=== PATIENT | female | born 1930 | race Caucasian/White ===

== ENCOUNTER 2017-07-17 09:51 | Inpatient (IN) ==
[2017-07-17] MEDS ORDERED: IOPAMIDOL 100 ML BOTTLE IV ONE (09:52)
--- NOTE | 2017-07-17 10:16 | Emergency Department Note ---
Weakness HPI - General Chief complaint: Weakness Stated complaint: Fall, Weakness Time Seen by Provider: 07/17/17 10:12 Source: patient, family Mode of arrival: wheelchair - History of Present Illness HPI Narrative: 87 year old female is complaining of increasing falls, the latest being this morning at assisted living. She fell in the bathroom, had a diarrheal stool, and was put back in her chair after being cleaned up. She has had diarrhea for 2 days. No recent antibiotics. Normally she can get herself out of the chair with the help of her walker but today she was unable. Her daughter was called to bring her to ER. No hx of dementia but has taken on some unusual movements of her body, "squirming" all the time according to her daughter. No new medications. MD Complaint: generalized weakness Onset (ago): week(s) (1) Duration: intermittent Location: generalized (Unable to push herself up from her chair. Had diarrhea this morning .) Migration: none Severity: mild Quality: other (No pain) Improves with: other (NO pain) Worsens with: other (trying to get up from her chair and walk.) Associated symptoms: Reports: other (diarrhea) - Related Data Home Medications Medication Instructions Recorded Confirmed calcium carbonate 600 mg calcium 600 mg PO QDAY tab 08/29/14 07/17/17 (1,500 mg) tablet cholecalciferol (vitamin D3) 1,000 1,000 unit PO QDAY cap 08/29/14 07/17/17 unit capsule ibuprofen 100 mg tablet 200 mg PO Q6H tab 08/29/14 07/17/17 multivitamin tablet 1 tab PO QDAY tab 08/29/14 07/17/17 omeprazole 20 mg capsule,delayed 20 mg PO QDAY cap 08/29/14 07/17/17 release psyllium seed (sugar) oral powder 1 tbsp PO QDAY each 08/29/14 07/17/17 aspirin 81 mg tablet,delayed 81 mg PO QDAY tab 10/21/14 07/17/17 release gabapentin 100 mg capsule 100 mg PO BID cap 11/03/15 07/17/17 ferrous sulfate 325 mg (65 mg 325 mg PO QDAY 11/02/16 07/17/17 iron) tablet Previous Rx's Medication Instructions Recorded DISABLED [place]ING [place]MIT See Dose Instructions TOPICAL .QD 04/12/16 #1 amlodipine 2.5 mg tablet 2.5 mg PO QDAY #90 tab 05/26/17 levothyroxine 100 mcg tablet 100 mcg PO QDAY #90 tab 05/26/17 losartan 100 mg tablet 100 mg PO QDAY #90 tab 05/26/17 Lift Chair #1 each 06/22/17 Allergies Allergy/AdvReac Type Severity Reaction Status Date / Time codeine Allergy Unknown Unknown Verified 07/17/17 10:34 hydrocodone Allergy Unknown Unknown Verified 07/17/17 10:34 hydrochlorothiazide AdvReac Unknown Rash Verified 07/17/17 10:34 Review of Systems Constitutional: Denies: fever, chills Cardiovascular: Denies: chest pain Respiratory: Denies: shortness of breath, cough Gastrointestinal: Reports: diarrhea. Denies: vomiting Genitourinary: Denies: dysuria, urgency Musculoskeletal: Reports: other (Right low back pain to palpation.) Integumentary: Denies: rash Neurological: Denies: headache Psychiatric: Reports: anxiety (Daughter says she gets anxious when she is in the hospital. 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 Absent: tenderness Chest: Present: normal inspection, symmetric chest wall rise Respiratory: Present: normal lung sounds bilaterally Cardiovascular: Present: regular rate, normal rhythm Abdominal: Present: soft. Absent: distention, tenderness Extremities: Present: normal inspection. Absent: pedal edema, joint swelling Back: Present: other (Tender right of LS spine into to right hip) Neurological: Present: alert, oriented X3 Psychiatric: Present: normal affect, anxious (per the daughter. she is figety.) Skin: Present: warm, dry, intact Course Course Narrative: 1230 Dr. Ham, hospitalist was consulted regarding the elevated WBC, low sodium and chloride as well as the weakness. Vital Signs Temperature 99.3 F H 07/17/17 10:30 Pulse Rate 98 H 07/17/17 10:30 Respiratory Rate 20 07/17/17 10:30 Blood Pressure 115/66 07/17/17 10:30 Pulse Oximetry (%) 96 07/17/17 10:30 Temperature 99.3 F H 07/17/17 10:30 Pulse Rate 100 H 07/17/17 12:40 Respiratory Rate 19 07/17/17 12:40 Blood Pressure 147/78 07/17/17 12:16 Pulse Oximetry (%) 99 07/17/17 12:40 Weakness - Lab Data Result diagrams: 07/17/17 10:28 07/17/17 10:28 Lab Results 07/17/17 07/17/17 07/17/17 Range/Units 10:28 10:28 11:44 WBC 12.6 H (4.5-11.0) K/mcL RBC 4.00 (4.00-5.20) M/mcL Hgb 11.7 L (12.0-15.0) g/dL Hct 34.7 L (36.0-48.0) % MCV 86.7 (80.0-100.0) fL MCH 29.3 (26.0-34.0) pg MCHC 33.8 (31.0-36.0) g/dL RDW 14.3 (11.5-14.5) % Plt Count 316 (140-440) K/mcL MPV 6.9 L (7.4-10.4) fL Gran % 90.5 H (38.0-78.0) % Lymph % (Auto) 1.5 L (15.5-49.0) % [place] % (Auto) 6.8 (1.0-12.0) % Eos % (Auto) 1.2 (0.0-7.0) % Baso % (Auto) 0 (0.0-2.0) % Gran # 11.4 H (1.8-8.0) K/mcL Lymph # (Auto) 0.2 L (1.5-4.8) K/mcL [place] # (Auto) 0.9 (0.1-0.9) K/mcL Eos # (Auto) 0.2 (0.0-0.7) K/mcL Baso # (Auto) 0 (0.0-0.3) K/mcL Sodium 122 L (133-145) mmol/L Potassium 4.2 (3.3-5.1) mmol/L Chloride 89 L (96-108) mmol/L Carbon Dioxide 20 L (22-30) mmol/L Anion Gap 13.0 (8-16) BUN 17 (8-23) mg/dl Creatinine 0.7 (0.6-1.1) mg/dl GFR Calculation 77 Glucose 136 H (70-105) mg/dL Calcium 8.7 (8.6-10.4) mg/dl Total Bilirubin 0.6 (0.0-1.0) mg/dL AST 33 (0-37) U/l ALT 28 (0-40) U/l Alkaline Phosphatase 76 (39-117) U/L Total Protein 7.8 (5.9-8.4) gm/dL Albumin 3.5 (3.2-5.2) gm/dL Globulin 4.3 H (2.2-3.7) gm/dL Albumin/Globulin Ratio 0.8 L (1.0-2.3) Urine Color Yellow Urine Appearance Hazy Urine pH 5.0 (5.0-9.0) Ur Specific [place] 1.018 (1.000-1.035) Urine Protein 30 A (NEG) mg/dL Urine Glucose (UA) Negative (NEG) mg/dL Urine Ketones Neg (NEG) mg/dL Urine Occult Blood Neg (<0.03) mg/dL Urine Nitrate Neg (NEG) Urine Bilirubin Neg (NEG) mg/dL Urine Urobilinogen Neg (NEG) mg/dL Ur Leukocyte Esterase Neg (NEG) /uL Urine RBC 1 (0-1) /hpf Urine WBC 1 (0-4) /hpf Ur Squamous Epith Cells < 1 (0-4) /hpf Urine Bacteria 0 (0) /hpf Urine Mucus Few (0) /hpf Ur Culture Indicated? No Disposition Pt seen by [employer]/PA only: Yes Clinical Impression: Hyponatremia, Weakness Clinical Impression: (Ruled Out): Diarrhea Disposition: Xfer As Inpt ([facility]) Condition: Fair Referrals: Molina Eden PA-C [Primary Care Provider] -
[2017-07-17 10:58] LABS: Basophils # (Auto) 0 K/mcL (0.0-0.3); Basophils % (Auto) 0 % (0.0-2.0); Eosinophils # (Auto) 0.2 K/mcL (0.0-0.7); Eosinophils % (Auto) 1.2 % (0.0-7.0); Granulocytes % (Auto) 90.5 % (38.0-78.0); Lymphocytes # (Auto) 0.2 K/mcL (1.5-4.8); Lymphocytes % (Auto) 1.5 % (15.5-49.0); Mean Cell Volume 86.7 fL (80.0-100.0); Mean Corpuscular HGB Conc 33.8 g/dL (31.0-36.0); Mean Corpuscular Hemoglobin 29.3 pg (26.0-34.0); Monocytes # (Auto) 0.9 K/mcL (0.1-0.9); Monocytes % (Auto) 6.8 % (1.0-12.0); Platelet Count 316 K/mcL (140-440); Red Cell Distribution Width 14.3 % (11.5-14.5)
[2017-07-17 11:16] LABS: ALT/SGPT 28 U/l (0-40); Albumin 3.5 gm/dL (3.2-5.2); Albumin/Globulin Ratio 0.8 (1.0-2.3); Alkaline Phosphatase 76 U/L (39-117); Blood Urea Nitrogen 17 mg/dl (8-23)
[2017-07-17 12:15] LABS: Appearance,Urine HAZY; Bacteria,Urine 0 /hpf (0); Bilirubin,Urine NEG (NEG); Color,Urine YELLOW; Glucose,Urine (UA) NEGATIVE (NEG); Leukocyte Esterase,Urine NEG /uL (NEG); Mucus,Urine FEW /hpf (0); Protein,Urine 30 mg/dL (NEG); Specific Gravity,Urine 1.018 (1.000-1.035); Urine Blood NEG mg/dL (<0.03); Urine RBC 1 /hpf (0-1); Urine Squamous Epithelial Cell < 1 /hpf (0-4); Urine WBC 1 /hpf (0-4); Urobilinogen,Urine NEG (NEG)
[2017-07-17] MEDS ORDERED: 0.9 % SODIUM CHLORIDE 1,000 ML IV SCH (12:15)
--- NOTE | 2017-07-17 12:46 | XRay Report ---
CLINICAL INFORMATION: Trauma COMPARISON: None. FINDINGS: No fracture identified. Both SI and hip joints show only minimal degenerative change. Moderate L3-4 L4-5 and L5-S1 degenerative disc disease noted. Mild diffuse osteoporosis is noted. No soft tissue abnormalities IMPRESSION: No evidence of fracture. Lumbar degenerative change Interpreted and Authenticated by: Kwabena Oquendo 07/17/17
[2017-07-17 13:43] LABS: Osmolality,Urine 499 mOsm/kg (80-1000)
[2017-07-17] MEDS ORDERED: ONDANSETRON 4 MG/2 ML VIAL IV PRN (15:06)
[2017-07-17] MEDS ORDERED: HYDROmorphone 2 MG/ML VIAL IV PRN (15:06)
[2017-07-17] MEDS ORDERED: ACETAMINOPHEN 325 MG TABLET PO PRN (15:06)
[2017-07-17] MEDS: 0.9 % SODIUM CHLORIDE 1,000 ML IV SCH (15:30)
[2017-07-17] MEDS: 0.9 % SODIUM CHLORIDE 10 ML SYRINGE IV SCH ×2 (16:21→22:15)
--- NOTE | 2017-07-17 17:47 | Internal Med History&Physical ---
Medical - H&P: HPI Patient information: Note initiated : 07/17/17 at 5:43 pm Service Date, if different from initiated Date: [] Patient: Keren Syed 87 y/o F admitted on 07/17/17 for Fall, Weakness. Chief Complaint: fall, diarrhea History of present illness: The patient 87-year-old female with a history of Graves' disease, status post ablation on replacement, mild hyponatremia, diverticulosis, bladder cancer who presents to the ED after falls at home. History is obtained from the patient, her daughter, as well as old records are reviewed. Patient developed diarrhea this morning. She had a fall in the bathroom was unable to get up. She had stool on herself. She was helped up and cleaned. Subsequently she was too weak to get up out of her chair, couldn't get to the bathroom again. Because of this she was transported to the emergency department. In the ED, she is ruled out for C. difficile with a negative stool specimen. While she was in the ED, she did develop left lower quadrant pain. She has a history of diverticulosis and occasionally gets left lower quadrant pain. Up until this morning, she had been constipated. She generally takes Metamucil every evening, not used any stronger laxatives prior to her diarrhea starting. She gets all of her meals at [facility], where she lives. Has not recently eaten out, no leftovers, no buffets. No ill contacts. No recent travel. She denies any fevers or chills. She's had no associated nausea or vomiting. There is no blood in her stool. As noted she occasionally has left lower quadrant abdominal pain. No headache, cough, sputum production, sore throat, chest pain/tightness, dyspnea, dysuria, focal neurologic symptoms. She feels generally weak. Further evaluation revealed serum sodium of 122 which is below her baseline. She is also quite weak. She's had 4-5 falls over the last 6 weeks. She lives at [facility], on the independent side. She is being admitted to the hospital secondary to her hyponatremia, as well as further evaluation of her left lower quadrant pain. 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 Walks with a walker. Non-smoker, does not drink alcohol. Medical - H&P: Meds Home Medications Medication Instructions Recorded Confirmed Type calcium carbonate 600 mg calcium 600 mg PO QDAY tab 08/29/14 07/17/17 History (1,500 mg) tablet cholecalciferol (vitamin D3) 1,000 1,000 unit PO QDAY cap 08/29/14 07/17/17 History unit capsule ibuprofen 100 mg tablet 200 mg PO Q6H tab 08/29/14 07/17/17 History multivitamin tablet 1 tab PO QDAY tab 08/29/14 07/17/17 History omeprazole 20 mg capsule,delayed 20 mg PO QDAY cap 08/29/14 07/17/17 History release psyllium seed (sugar) oral powder 1 tbsp PO QDAY each 08/29/14 07/17/17 History aspirin 81 mg tablet,delayed 81 mg PO QDAY tab 10/21/14 07/17/17 History release DISABLED [place] See Dose Instructions TOPICAL .QD 07/01/15 06/22/17 Rx #1 gabapentin 100 mg capsule 100 mg PO BID cap 11/03/15 07/17/17 History ferrous sulfate 325 mg (65 mg 325 mg PO QDAY 11/02/16 07/17/17 History iron) tablet amlodipine 2.5 mg tablet 2.5 mg PO QDAY #90 tab 05/26/17 07/17/17 Rx levothyroxine 100 mcg tablet 100 mcg PO QDAY #90 tab 05/26/17 07/17/17 Rx losartan 100 mg tablet 100 mg PO QDAY #90 tab 05/26/17 07/17/17 Rx Lift Chair #1 each 06/22/17 06/22/17 Rx Allergies Allergy/AdvReac Type Severity Reaction Status Date / Time codeine Allergy Unknown Unknown Verified 07/17/17 10:34 hydrocodone Allergy Unknown Unknown Verified 07/17/17 10:34 hydrochlorothiazide AdvReac Mild Rash Verified 07/17/17 15:08 Medical - H&P: Exam - Constitutional Vitals: Temp Pulse Resp BP Pulse Ox 99.7 F H 87 20 150/94 88 L 07/17/17 15:06 07/17/17 15:06 07/17/17 15:06 07/17/17 15:06 07/17/17 15:06 Exam: GENERAL: Alert, oriented, in no acute distress. Cooperative, appears stated age. HEENT: Atraumatic. PERRL, conjunctiva clear, no scleral icterus. Hearing grossly intact. Oropharynx with moist mucous membranes, no lip or gum lesions, no pharyngeal erythema or exudate. Tongue midline, palate rises symmetrically. NECK: Supple without meningismus, no thyromegaly RESPIRATORY: Breath sounds clear bilaterally without wheezes or rhonchi. Respiratory effort is unlabored. CARDIOVASCULAR: Regular rate and rhythm, no murmur gallop or rub. No peripheral edema. Carotid pulses 2+ without bruit. GI: Abdomen soft, mild-moderate LLQ tenderness to palpation with mild rebound tenderness. Bowel sounds are present. No hepatosplenomegaly. LYMPHATIC: No cervical or supraclavicular lymphadenopathy MUSCULOSKELETAL: No joint erythema or swelling, normal range of motion in extremities. Muscle mass normal for age. Strength 5/5 in the upper and lower extremities. SKIN: Intact, warm, dry. Skin turgor decreased. NEUROLOGIC: Cranial nerves II through XII grossly intact. Sensation intact to light touch bilaterally. PSYCHIATRIC: Alert, oriented x3, normal affect, normal insight. Medical - H&P: Reslt - Labs CBC & Chem 7: 07/17/17 10:28 07/17/17 10:28 Labs: Short CBC 07/17/17 Range/Units 10:28 WBC 12.6 H (4.5-11.0) K/mcL Hgb 11.7 L (12.0-15.0) g/dL Hct 34.7 L (36.0-48.0) % Plt Count 316 (140-440) K/mcL BMP 07/17/17 07/17/17 10:19 10:28 Sodium TNP 122 L Potassium TNP 4.2 Chloride TNP 89 L Carbon Dioxide TNP 20 L BUN TNP 17 Creatinine TNP 0.7 Glucose TNP 136 H Calcium TNP 8.7 Liver Function 07/17/17 Range/Units 10:28 Total Bilirubin 0.6 (0.0-1.0) mg/dL AST 33 (0-37) U/l ALT 28 (0-40) U/l Alkaline Phosphatase 76 (39-117) U/L Albumin 3.5 (3.2-5.2) gm/dL Urine 07/17/17 Range/Units 11:44 Urine Color Yellow Urine Appearance Hazy Urine pH 5.0 (5.0-9.0) Ur Specific [place] 1.018 (1.000-1.035) Urine Protein 30 A (NEG) mg/dL Urine Glucose (UA) Negative (NEG) mg/dL Microbiology 07/17/17 15:19 MRSA (PCR) - Final Nose MRSA PCR positive 07/17/17 10:29 C.difficile Toxin B Gene (PCR) - Final Stool NEG - Impressions Hip and Pelvis XR IMPRESSION: No evidence of fracture. Lumbar degenerative change - Imaging and Cardiology CT scan - abdomen Status: image reviewed by me Additional comments: Study and images reviewed and discussed with Dr. Oquendo. Uncomplicated sigmoid diverticulitis. No perforation, no abscess. Medical - H&P: A/P (1) Hyponatremia Current visit: Yes Status: Acute (2) Diverticulitis large intestine w/o perforation or abscess w/o bleeding Current visit: Yes Status: Acute (3) Hypothyroidism (acquired) Current visit: No Status: Chronic - Narrative A/P Narrative: 87-year-old female presents after 2 falls, weakness and diarrhea. Found to have acute on chronic hyponatremia as well as diverticulitis on examination imaging. Hyponatremia. Baseline serum sodium is 129 to 1:30 per the patient. She does have a chronic history of hyponatremia. Unclear on how acutely she is dropped to 122, but could be contributing to her presentation, her falls and her generalized weakness. Given the level of hyponatremia she will need correction. She has been started on normal saline infusion. Plan: Inpatient admission, serial sodiums, slowly correct sodium. Urine sodium and Osm sent to help sort out cause of hyponatremia. Clinically she is hypovolemic at presentation. Diverticulitis. Uncomplicated, without perforation or abscess. This likely explains her recent constipation followed by her diarrhea today. She has extensive sigmoid diverticulosis. Plan: Ciprofloxacin and metronidazole, pain control, full liquid diet. Generalized weakness with recent falls. May be related to age-related debility , certainly in last few days likely related to diverticulitis and possibly hyponatremia. Plan: Physical therapy evaluation and treatment. Graves' disease with history of thyroid ablation and acquired hypothyroidism. On levothyroxine replacement. If under replaced, could be contributing to her serum sodium. Plan: Check TSH. Prophylaxis: Low molecular weight heparin. CODE STATUS: DO NOT RESUSCITATE. Medical - H&P: Qual - Stroke Symptom Onset Unknown: No - VTE Deep Vein Thrombosis/Pulmonary Embolism Present on Admission: No
--- NOTE | 2017-07-17 19:28 | Cat Scan Report ---
CLINICAL INFORMATION: Left lower quadrant pain COMPARISON: 05/14/[address] TECHNIQUE: Following enteric contrast, 80 cc of Isovue-300 were injected intravenously, and 60 seconds later, 0.625 mm helical slices were obtained from the mid heart through the subtrochanteric regions. Following reconstruction, 2.5 mm sagittal, coronal and axial reformatted images were processed and reviewed at bone, lung and soft tissue windows. Five minutes later, 0.625 mm helical slices were obtained from the mid heart through the kidneys and viewed at soft tissue windows.The exam was performed using radiation dose optimization techniques including, but not limited to, automated exposure control, adjustment of the mA and/or kV according to patient size and use of iterative reconstruction technique. FINDINGS: Lung bases show evidence for chronic bronchitis and interstitial disease which is new from previous study may indicate fibrosis. There are no effusions. Visualized heart is mildly enlarged Images through the abdomen show mild fatty change within the liver, but no focal lesions. The gallbladder is surgically absent. The common bile duct is slightly dilated 7 mm compatible with post cholecystectomy state. The pancreas, both kidneys, adrenal glands, spleen and aorta are normal in size, configuration and attenuation without focal lesion. Images through the pelvis show diminutive postmenopausal uterus. The ovaries are atrophic and not identified. Urinary bladder is unremarkable. Extensive sigmoid diverticulosis is noted featuring circular muscle hypertrophy and multiple diverticuli. There is eccentric wall thickening of the inferior mid sigmoid colon with a small amount of fluid between the sigmoid colon and the bladder dome. Findings are compatible with diverticulitis is a new finding. There is no abscess, fistula or other complication. The remainder of the colon, appendix, small bowel and stomach are normal. Bone windows show only degenerative change in lumbar spine IMPRESSION: 1. Simple diverticulitis involving the proximal 8 cm of sigmoid colon. No abscess or other complication. 2. Mild dilatation of the common bile duct compatible post cholecystectomy state - no change 3. Chronic bronchitis changes and interstitial disease in the periphery of both lower lobe which is new from a remote 2012 study. The patient could have interstitial fibrosis. 4. 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
[2017-07-17] MEDS: metroNIDAZOLE 500 MG/100 ML BAG IV SCH (20:10)
[2017-07-17] MEDS: CIPROFLOXACIN 400 MG/200 ML BAG IV SCH (20:11)
[2017-07-17] MEDS ORDERED: HYDROmorphone 2 MG TABLET PO PRN (20:36)
[2017-07-17] MEDS: GABAPENTIN 100 MG CAPSULE PO SCH (21:40)
[2017-07-18 04:48] LABS: Mean Corpuscular HGB Conc 33.9 g/dL (31.0-36.0); Mean Corpuscular Hemoglobin 29.5 pg (26.0-34.0); Platelet Count 289 K/mcL (140-440); RBC 3.76 M/mcL (4.00-5.20); Red Cell Distribution Width 14.1 % (11.5-14.5)
[2017-07-18] MEDS: 0.9 % SODIUM CHLORIDE 1,000 ML IV SCH ×2 (04:54→12:43)
[2017-07-18] MEDS: metroNIDAZOLE 500 MG/100 ML BAG IV SCH ×3 (05:23→22:55)
[2017-07-18 05:25] LABS: Blood Urea Nitrogen 12 mg/dl (8-23)
[2017-07-18] MEDS: 0.9 % SODIUM CHLORIDE 10 ML SYRINGE IV SCH ×3 (05:55→21:23)
[2017-07-18 05:58] LABS: Lymphocytes % 1 % (15-49); Monocytes % (Manual) 3 % (1-12); Platelet Estimate NORMAL (NORMAL); RBC Morphology NORMAL (NORMAL); Segmented Neutrophils % 96 % (38-78)
[2017-07-18] MEDS ORDERED: LEVOTHYROXINE 100 MCG TABLET PO SCH (07:30)
[2017-07-18] MEDS ORDERED: PANTOPRAZOLE 40 MG TABLET PO SCH (07:30)
--- NOTE | 2017-07-18 07:59 | Internal Med Progress Note ---
Medical - PN: Subj Patient information: Note initiated : 07/18/17 at 7:57 am Service Date, if different from initiated Date: [] Patient: Keren Syed 87 y/o F admitted on 07/17/17 for Fall, Weakness. Chief Complaint: f/u diverticulitis Interval history: 07/17 The patient 87-year-old female with a history of Graves' disease, status post ablation on replacement, mild hyponatremia, diverticulosis, bladder cancer who presents to the ED after falls at home. History is obtained from the patient, her daughter, as well as old records are reviewed. Patient developed diarrhea this morning. She had a fall in the bathroom was unable to get up. She had stool on herself. She was helped up and cleaned. Subsequently she was too weak to get up out of her chair, couldn't get to the bathroom again. Because of this she was transported to the emergency department. In the ED, she is ruled out for C. difficile with a negative stool specimen. While she was in the ED, she did develop left lower quadrant pain. She has a history of diverticulosis and occasionally gets left lower quadrant pain. Up until this morning, she had been constipated. She generally takes Metamucil every evening, not used any stronger laxatives prior to her diarrhea starting. She gets all of her meals at [place], where she lives. Has not recently eaten out, no leftovers, no buffets. No ill contacts. No recent travel. She denies any fevers or chills. She's had no associated nausea or vomiting. There is no blood in her stool. As noted she occasionally has left lower quadrant abdominal pain. No headache, cough, sputum production, sore throat, chest pain/tightness, dyspnea, dysuria, focal neurologic symptoms. She feels generally weak. Further evaluation revealed serum sodium of 122 which is below her baseline. She is also quite weak. She's had 4-5 falls over the last 6 weeks. She lives at [place], on the independent side. She is being admitted to the hospital secondary to her hyponatremia, as well as further evaluation of her left lower quadrant pain. 07/[address] yesterday. On antibiotics. Still with abdominal pain, did have nausea after hydromorphone yesterday. Her allergy to codeine is fairly severe nausea (may be codeine intolerance due to poor metabolism). She has tried morphine before. Also requesting her gabapentin, which she uses for trigeminal neuralgia. Sodium up to 126 today, slowly correcting with saline infusion. - Constitutional Vitals: Vital Signs Temp Pulse Resp BP Pulse Ox 98.8 F 64 16 115/54 99 07/18/17 04:00 07/18/17 06:04 07/18/17 04:00 07/18/17 06:04 07/18/17 06:04 Period Temp Pulse Resp BP Sys/Purcell Pulse Ox Last 24 Hr 98.8 F-99.7 F 56-100 15-30 95-154/45-94 88-100 Intake and Output 07/17/17 07/18/17 07/18/17 21:59 05:59 13:59 Intake Total 300 / 300 1000 / 1000 Output Total 626 / 626 101 / 101 Balance -326 / -326 1000 / 1000 -101 / -101 Weight 134 lb 12.8 oz Intake & Output: Intake & Output 07/17/17 07/18/17 07/18/17 21:59 05:59 13:59 Intake Total 300 / 300 1000 / 1000 Output Total 626 / 626 101 / 101 Balance -326 / -326 1000 / 1000 -101 / -101 Weight 134 lb 12.8 oz Intake: IV 300 / 300 1000 / 1000 Sodium Chloride 0.9% 1,000 ml @ 1000 / 1000 75 mls/hr IV .[id number] EB Rx#: [id number] Oral 0 / 0 Output: Void Amount 626 / 626 100 / 100 # of times incontinent of urine 1 / Other: Stool Size Moderate Stool Color Brown Stool Consistency Formed # Voids 1 1 # Bowel Movements 1 Exam: General: In bed, comfortable Cardiovascular: Regular, no edema Chest: Clear, respirations unlabored Abdomen: Soft, mild to moderate left lower quadrant tenderness with mild rebound. No guarding. Diminished bowel sounds. Neuro: Alert, oriented 3. Medical - PN: Obj Da - Labs CBC & Chem 7: 07/18/17 03:44 07/18/17 03:44 Labs: Abnormal Lab Results 07/18/17 07/18/17 07/17/17 03:44 03:44 19:20 WBC 14.2 H RBC 3.76 L Hgb 11.1 L Hct 32.7 L MPV 7.1 L Gran % Lymph % (Auto) Gran # Lymph # (Auto) Seg Neutrophils % 96 H Lymphocytes % 1 L Sodium 126 L 125 L Chloride 94 L Carbon Dioxide 21 L Creatinine 0.5 L Glucose 149 H Calcium 8.1 L Globulin Albumin/Globulin Ratio Urine Protein 07/17/17 07/17/17 07/17/17 11:44 10:28 10:28 WBC 12.6 H RBC Hgb 11.7 L Hct 34.7 L MPV 6.9 L Gran % 90.5 H Lymph % (Auto) 1.5 L Gran # 11.4 H Lymph # (Auto) 0.2 L Seg Neutrophils % Lymphocytes % Sodium 122 L Chloride 89 L Carbon Dioxide 20 L Creatinine Glucose 136 H Calcium Globulin 4.3 H Albumin/Globulin Ratio 0.8 L Urine Protein 30 A Meds: Medications Acetaminophen (Tylenol) 650 mg PO Q6HP PRN PRN Reason: PAIN/FEVER > 101 Amlodipine Besylate (Norvasc) 2.5 mg PO DAILY [facility] Aspirin (Aspirin) 81 mg PO DAILY [facility] Enoxaparin Sodium (Lovenox) 40 mg SQ DAILY [facility] Gabapentin (Neurontin) 100 mg PO BID [facility] Last Admin: 07/17/17 21:40 Dose: Not Given Hydromorphone HCl (Dilaudid) 0.5 mg IV Q2HP PRN PRN Reason: PAIN LEVEL > 6 Last Admin: 07/17/17 20:40 Dose: 0.5 mg Hydromorphone HCl (Dilaudid) 2 mg PO Q4HP PRN PRN Reason: PAIN LEVEL 3-6 Sodium Chloride (Sodium Chloride 0.9%) 1,000 mls @ 75 mls/hr IV .[id number] [facility] Last Admin: 07/18/17 04:54 Dose: 75 mls/hr Ciprofloxacin (Cipro) 400 mg in 200 mls @ 200 mls/hr IV Q12H [facility] Last Infusion: 07/17/17 21:30 Dose: Infused Metronidazole (Flagyl) 500 mg in 100 mls @ 100 mls/hr IV Q8H [facility] Last Admin: 07/18/17 05:23 Dose: 100 mls/hr Iron Carb/Multivit/Dupage/Folic Acid (Multivitamin W/Minerals) 1 tab PO DAILY [facility] Levothyroxine Sodium (Synthroid) 100 mcg PO QAMAC [facility] Last Admin: 07/18/17 07:40 Dose: 100 mcg Losartan Potassium (Cozaar) 100 mg PO DAILY [facility] Ondansetron HCl (Zofran) 4 mg IV Q4HP PRN PRN Reason: Nausea And Vomiting Last Admin: 07/17/17 20:40 Dose: 4 mg Pantoprazole Sodium (Protonix) 40 mg PO QAMAC [facility] Last Admin: 07/18/17 07:40 Dose: 40 mg Sodium Chloride (Saline Flush) 10 ml IV Q8 [facility] Last Admin: 07/18/17 05:55 Dose: 10 ml - Imaging and cardiology CT scan - abdomen Additional comments: IMPRESSION: 1. Simple diverticulitis involving the proximal 8 cm of sigmoid colon. No abscess or other complication. 2. Mild dilatation of the common bile duct compatible post cholecystectomy state - no change 3. Chronic bronchitis changes and interstitial disease in the periphery of both lower lobe which is new from a remote 2012 study. The patient could have interstitial fibrosis. 4. 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 Found to have acute on chronic hyponatremia as well as diverticulitis on examination and imaging. Diverticulitis. Uncomplicated, without perforation or abscess. WBC up a bit to 14K fron 12K, though the latter was drawn early in the presentation and today 's value probably reflects response to initial treatment. Diverticulitis likely explains her constipation followed by her diarrhea at presentation. She has extensive sigmoid diverticulosis. Plan: Continue ciprofloxacin and metronidazole, full liquid diet; change to morphine for pain control. Hyponatremia. Baseline serum sodium is 129 to 130 per the patient. She does have a chronic history of hyponatremia. TSH normal. 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 However, responding to NS (not usually seen in SIADH). Plan: Continue with NS at 75 ml/hr, recheck BMP at noon. Can transfer to med/ surg status. Generalized weakness with recent falls. May be related to age-related debility , certainly in last few days likely related to diverticulitis and possibly hyponatremia. Plan: Physical therapy evaluation and treatment. Graves' disease with history of thyroid ablation and acquired hypothyroidism. Euthyroid on levothyroxine replacement. Plan: Continue replacement. Trigeminal neuralgia. On gabapentin at home. Plan: Gabapentin reordered. Medical - PN: Qual - Stroke Symptom Onset Unknown: No - VTE Deep Vein Thrombosis/Pulmonary Embolism Present on Admission: No
[2017-07-18] MEDS ORDERED: morphine 20 MG/ML ORAL.CONC PO PRN (08:22)
[2017-07-18] MEDS ORDERED: LOSARTAN 50 MG TABLET PO SCH (09:00)
[2017-07-18] MEDS ORDERED: ASPIRIN 81 MG TAB.CHEW PO SCH (09:00)
[2017-07-18] MEDS ORDERED: ENOXAPARIN 40 MG/0.4 ML SYRINGE SQ SCH (09:00)
[2017-07-18] MEDS ORDERED: amLODIPine 5 MG TABLET PO SCH (09:00)
[2017-07-18] MEDS ORDERED: MULTIVIT,THER IRON,CA,FA & MIN 1 TABLET PO SCH (09:00)
[2017-07-18] MEDS: GABAPENTIN 100 MG CAPSULE PO SCH ×2 (09:12→21:23)
[2017-07-18] MEDS: CIPROFLOXACIN 400 MG/200 ML BAG IV SCH ×2 (09:26→21:22)
[2017-07-18] MEDS ORDERED: ONDANSETRON 4 MG/2 ML VIAL IV PRN (10:20)
[2017-07-18] MEDS ORDERED: ACETAMINOPHEN 325 MG TABLET PO PRN (10:20)
--- NOTE | 2017-07-18 13:08 | XRay Report ---
HISTORY: Reason for Exam:Fall, right index MCP pain, swelling FINDINGS: No fracture or dislocation are present. 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 Joint spaces narrowed and there are large spurs. There also large heterotopic soft tissue calcifications along the radial side of this joint space. Moderate amount of chondrocalcinosis is present in the triangular fibrocartilage. There is narrowing of the distal interphalangeal joints of the second through fifth fingers. The metacarpophalangeal joint spaces are normal. IMPRESSION: No fracture Severe arthritis between the trapezium and first metacarpal and moderate arthritis between the scaphoid and trapezium Interpreted and Authenticated by: Naren Morris 07/18/17
[2017-07-18 13:54] LABS: Blood Urea Nitrogen 12 mg/dl (8-23)
[2017-07-18] MEDS ORDERED: metroNIDAZOLE 500 MG/100 ML BAG IV SCH (14:00)
[2017-07-18] MEDS: morphine 20 MG/ML ORAL.CONC PO PRN (21:24)
[2017-07-19] MEDS: 0.9 % SODIUM CHLORIDE 1,000 ML IV SCH ×3 (02:11→18:55)
[2017-07-19] MEDS: 0.9 % SODIUM CHLORIDE 10 ML SYRINGE IV SCH ×3 (05:45→21:34)
[2017-07-19] MEDS: metroNIDAZOLE 500 MG/100 ML BAG IV SCH ×3 (05:45→21:23)
[2017-07-19 05:53] LABS: Basophils # (Auto) 0 K/mcL (0.0-0.3); Basophils % (Auto) 0.1 % (0.0-2.0); Eosinophils # (Auto) 0 K/mcL (0.0-0.7); Eosinophils % (Auto) 0 % (0.0-7.0); Granulocytes % (Auto) 86.2 % (38.0-78.0); Lymphocytes # (Auto) 0.4 K/mcL (1.5-4.8); Mean Cell Volume 87.3 fL (80.0-100.0); Mean Corpuscular HGB Conc 34.4 g/dL (31.0-36.0); Monocytes # (Auto) 0.5 K/mcL (0.1-0.9); Monocytes % (Auto) 7.7 % (1.0-12.0); Platelet Count 268 K/mcL (140-440); Red Cell Distribution Width 14.6 % (11.5-14.5)
[2017-07-19 06:17] LABS: Blood Urea Nitrogen 13 mg/dl (8-23)
[2017-07-19] MEDS: PANTOPRAZOLE 40 MG TABLET PO SCH (08:49)
[2017-07-19] MEDS: LEVOTHYROXINE 100 MCG TABLET PO SCH (08:49)
[2017-07-19] MEDS: amLODIPine 5 MG TABLET PO SCH (10:47)
[2017-07-19] MEDS: ENOXAPARIN 40 MG/0.4 ML SYRINGE SQ SCH (10:47)
[2017-07-19] MEDS: GABAPENTIN 100 MG CAPSULE PO SCH ×2 (10:48→21:21)
[2017-07-19] MEDS: MULTIVIT,THER IRON,CA,FA & MIN 1 TABLET PO SCH (10:48)
[2017-07-19] MEDS: LOSARTAN 50 MG TABLET PO SCH (10:49)
[2017-07-19] MEDS: ASPIRIN 81 MG TAB.CHEW PO SCH (10:49)
[2017-07-19] MEDS: CIPROFLOXACIN 400 MG/200 ML BAG IV SCH ×2 (10:59→22:52)
--- NOTE | 2017-07-19 17:37 | Internal Med Progress Note ---
Medical - PN: Subj Patient information: Note initiated : 07/19/17 at 5:21 pm Service Date, if different from initiated Date: [] Patient: Keren Syed 87 y/o F admitted on 07/17/17 for Fall, Weakness, Diverticulitis/Hyponatremia. Chief Complaint: f/u diverticulitis Interval history: 07/17 The patient 87-year-old female with a history of Graves' disease, status post ablation on replacement, mild hyponatremia, diverticulosis, bladder cancer who presents to the ED after falls at home. History is obtained from the patient, her daughter, as well as old records are reviewed. Patient developed diarrhea this morning. She had a fall in the bathroom was unable to get up. She had stool on herself. She was helped up and cleaned. Subsequently she was too weak to get up out of her chair, couldn't get to the bathroom again. Because of this she was transported to the emergency department. In the ED, she is ruled out for C. difficile with a negative stool specimen. While she was in the ED, she did develop left lower quadrant pain. She has a history of diverticulosis and occasionally gets left lower quadrant pain. Up until this morning, she had been constipated. She generally takes Metamucil every evening, not used any stronger laxatives prior to her diarrhea starting. She gets all of her meals at [place], where she lives. Has not recently eaten out, no leftovers, no buffets. No ill contacts. No recent travel. She denies any fevers or chills. She's had no associated nausea or vomiting. There is no blood in her stool. As noted she occasionally has left lower quadrant abdominal pain. No headache, cough, sputum production, sore throat, chest pain/tightness, dyspnea, dysuria, focal neurologic symptoms. She feels generally weak. Further evaluation revealed serum sodium of 122 which is below her baseline. She is also quite weak. She's had 4-5 falls over the last 6 weeks. She lives at [place], on the independent side. She is being admitted to the hospital secondary to her hyponatremia, as well as further evaluation of her left lower quadrant pain. 07/[address] yesterday. On antibiotics. Still with abdominal pain, did have nausea after hydromorphone yesterday. Her allergy to codeine is fairly severe nausea (may be codeine intolerance due to poor metabolism). She has tried morphine before. Also requesting her gabapentin, which she uses for trigeminal neuralgia. Sodium up to 126 today, slowly correcting with saline infusion. 07/19 Seen and examined. Still feels somewhat unwell. Had BM, more solid. Tolerating full liquids, advanced to low residue. Sodium up to 128. - Constitutional Vitals: Vital Signs Temp Pulse Resp BP Pulse Ox 97.3 F 72 16 108/59 93 07/19/17 15:38 07/19/17 12:00 07/19/17 15:38 07/19/17 15:38 07/19/17 15:38 Period Temp Pulse Resp BP Sys/Purcell Pulse Ox Last 24 Hr 97.3 F-98.2 F 62-73 14-24 108-138/59-68 93-96 Intake and Output 07/19/17 07/19/17 07/19/17 05:59 13:59 21:59 Intake Total 1650 / 1650 100 / 100 240 / 240 Output Total 200 / 200 100 / 100 250 / 250 Balance 1450 / 1450 0 / 0 -10 / -10 Intake & Output: Intake & Output 07/19/17 07/19/17 07/19/17 05:59 13:59 21:59 Intake Total 1650 / 1650 100 / 100 240 / 240 Output Total 200 / 200 100 / 100 250 / 250 Balance 1450 / 1450 0 / 0 -10 / -10 Intake: IV 1500 / 1500 100 / 100 Oral 150 / 150 240 / 240 Output: Void Amount 200 / 200 100 / 100 250 / 250 Other: Stool Size Moderate Small Stool Color Brown Brown Stool Consistency Soft Soft Formed # Bowel Movements 1 Exam: General: In no acute distress Chest: Clear, unlabored respirations Cardiovascular: Regular rate and rhythm Abdomen: Soft, mild to moderate left lower quadrant tenderness, mild rebound. No guarding. Musculoskeletal: Mild erythema over left index MCP. Neuro: Alert, oriented 3. Medical - PN: Obj Da - Labs CBC & Chem 7: 07/19/17 04:10 07/19/17 04:10 Labs: Abnormal Lab Results 07/19/17 07/19/17 07/18/17 04:10 04:10 12:29 WBC RBC 3.50 L Hgb 10.5 L Hct 30.5 L RDW 14.6 H MPV 7.2 L Gran % 86.2 H Lymph % (Auto) 6.0 L Gran # Lymph # (Auto) 0.4 L Seg Neutrophils % Lymphocytes % Sodium 128 L 126 L Chloride 95 L Carbon Dioxide 20 L 20 L Creatinine 0.5 L Glucose 118 H Calcium 7.8 L 8.2 L Globulin Albumin/Globulin Ratio Urine Protein 07/18/17 07/18/17 07/17/17 03:44 03:44 19:20 WBC 14.2 H RBC 3.76 L Hgb 11.1 L Hct 32.7 L RDW MPV 7.1 L Gran % Lymph % (Auto) Gran # Lymph # (Auto) Seg Neutrophils % 96 H Lymphocytes % 1 L Sodium 126 L 125 L Chloride 94 L Carbon Dioxide 21 L Creatinine 0.5 L Glucose 149 H Calcium 8.1 L Globulin Albumin/Globulin Ratio Urine Protein 07/17/17 07/17/17 07/17/17 11:44 10:28 10:28 WBC 12.6 H RBC Hgb 11.7 L Hct 34.7 L RDW MPV 6.9 L Gran % 90.5 H Lymph % (Auto) 1.5 L Gran # 11.4 H Lymph # (Auto) 0.2 L Seg Neutrophils % Lymphocytes % Sodium 122 L Chloride 89 L Carbon Dioxide 20 L Creatinine Glucose 136 H Calcium Globulin 4.3 H Albumin/Globulin Ratio 0.8 L Urine Protein 30 A Meds: Medications Acetaminophen (Tylenol) 650 mg PO Q6HP PRN PRN Reason: PAIN/FEVER > 101 Amlodipine Besylate (Norvasc) 2.5 mg PO DAILY [facility] Last Admin: 07/19/17 10:47 Dose: 2.5 mg Aspirin (Aspirin) 81 mg PO DAILY [facility] Last Admin: 07/19/17 10:49 Dose: 81 mg Enoxaparin Sodium (Lovenox) 40 mg SQ DAILY [facility] Last Admin: 07/19/17 10:47 Dose: 40 mg Gabapentin (Neurontin) 100 mg PO BID [facility] Last Admin: 07/19/17 10:48 Dose: 100 mg Ciprofloxacin (Cipro) 400 mg in 200 mls @ 200 mls/hr IV Q12H [facility] Last Admin: 07/19/17 10:59 Dose: 200 mls/hr Sodium Chloride (Sodium Chloride 0.9%) 1,000 mls @ 75 mls/hr IV .[id number] [facility] Stop: 07/19/17 19:00 Last Admin: 07/19/17 03:29 Dose: 75 mls/hr Metronidazole (Flagyl) 500 mg in 100 mls @ 100 mls/hr IV Q8H [facility] Last Admin: 07/19/17 14:00 Dose: 100 mls/hr Iron Carb/Multivit/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 Last Admin: 07/19/17 08:49 Dose: 100 mcg Losartan Potassium (Cozaar) 100 mg PO DAILY [facility] Last Admin: 07/19/17 10:49 Dose: 100 mg Morphine Sulfate (Morphine) 10 mg PO Q4HP PRN PRN Reason: PAIN LEVEL 3-6 Last Admin: 07/18/17 21:24 Dose: 10 mg Morphine Sulfate (Morphine) 2 mg IV Q4HP PRN PRN Reason: PAIN LEVEL > 6 Last Admin: 07/18/17 21:23 Dose: 2 mg Ondansetron HCl (Zofran) 4 mg IV Q4HP PRN PRN Reason: Nausea And Vomiting Pantoprazole Sodium (Protonix) 40 mg PO QAMAC [facility] Last Admin: 07/19/17 08:49 Dose: 40 mg Sodium Chloride (Saline Flush) 10 ml IV Q8 [facility] Last Admin: 07/19/17 05:45 Dose: Not Given - Impressions Hand X-ray IMPRESSION: No fracture 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 Found to have acute on chronic hyponatremia as well as diverticulitis on examination and imaging. Diverticulitis. Uncomplicated, without perforation or abscess. WBC now normalized after going up a bit to 14K yesterday from 12K. Diverticulitis likely explains her constipation followed by her diarrhea at presentation. She has extensive sigmoid diverticulosis. Still with mild-moderate tenderness. Plan: Continue ciprofloxacin and metronidazole, advance to low residue diet; continue morphine for pain control. Hyponatremia. Baseline serum sodium is 129 to 130 per the patient. She does have a chronic history of hyponatremia. TSH normal. 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 However, responding to NS (not usually seen in SIADH). Continues to improve. Plan: Stop NS after this liter bag. Follow Na. Generalized weakness with recent falls. May be related to age-related debility , certainly in last few days likely related to diverticulitis and possibly hyponatremia. Plan: Physical therapy evaluation and treatment. Graves' disease with history of thyroid ablation and acquired hypothyroidism. Euthyroid on levothyroxine replacement. Plan: Continue replacement. Trigeminal neuralgia. On gabapentin at home. Plan: Continue gabapentin. Medical - PN: Qual - Stroke Symptom Onset Unknown: No - VTE Deep Vein Thrombosis/Pulmonary Embolism Present on Admission: No
[2017-07-19] MEDS: morphine 20 MG/ML ORAL.CONC PO PRN (22:24)
[2017-07-20] MEDS: 0.9 % SODIUM CHLORIDE 10 ML SYRINGE IV SCH ×3 (05:04→22:51)
[2017-07-20] MEDS: metroNIDAZOLE 500 MG/100 ML BAG IV SCH ×3 (05:04→22:50)
[2017-07-20 05:20] LABS: Basophils # (Auto) 0 K/mcL (0.0-0.3); Basophils % (Auto) 0.2 % (0.0-2.0); Eosinophils # (Auto) 0.1 K/mcL (0.0-0.7); Eosinophils % (Auto) 2.4 % (0.0-7.0); Granulocytes % (Auto) 77.8 % (38.0-78.0); Lymphocytes # (Auto) 0.4 K/mcL (1.5-4.8); Mean Cell Volume 86.8 fL (80.0-100.0); Mean Corpuscular HGB Conc 33.9 g/dL (31.0-36.0); Mean Corpuscular Hemoglobin 29.4 pg (26.0-34.0); Monocytes # (Auto) 0.6 K/mcL (0.1-0.9); Monocytes % (Auto) 11.6 % (1.0-12.0); Platelet Count 271 K/mcL (140-440); RBC 3.56 M/mcL (4.00-5.20); Red Cell Distribution Width 14.6 % (11.5-14.5)
[2017-07-20 05:48] LABS: Blood Urea Nitrogen 9 mg/dl (8-23)
[2017-07-20] MEDS: PANTOPRAZOLE 40 MG TABLET PO SCH (07:40)
[2017-07-20] MEDS: LEVOTHYROXINE 100 MCG TABLET PO SCH (07:40)
[2017-07-20] MEDS ORDERED: MAGNESIUM HYDROXIDE 30 ML ORAL.SUSP PO ONE (10:11)
[2017-07-20] MEDS ORDERED: MAGNESIUM HYDROXIDE 30 ML ORAL.SUSP PO PRN (10:11)
--- NOTE | 2017-07-20 10:15 | Internal Med Progress Note ---
Medical - PN: Subj Patient information: Note initiated : 07/20/17 at 10:13 am Service Date, if different from initiated Date: [] Patient: Keren Syed 87 y/o F admitted on 07/17/17 for Fall, Weakness, Diverticulitis/Hyponatremia. Chief Complaint: f/u diverticulitis Interval history: 07/17 The patient 87-year-old female with a history of Graves' disease, status post ablation on replacement, mild hyponatremia, diverticulosis, bladder cancer who presents to the ED after falls at home. History is obtained from the patient, her daughter, as well as old records are reviewed. Patient developed diarrhea this morning. She had a fall in the bathroom was unable to get up. She had stool on herself. She was helped up and cleaned. Subsequently she was too weak to get up out of her chair, couldn't get to the bathroom again. Because of this she was transported to the emergency department. In the ED, she is ruled out for C. difficile with a negative stool specimen. While she was in the ED, she did develop left lower quadrant pain. She has a history of diverticulosis and occasionally gets left lower quadrant pain. Up until this morning, she had been constipated. She generally takes Metamucil every evening, not used any stronger laxatives prior to her diarrhea starting. She gets all of her meals at [place], where she lives. Has not recently eaten out, no leftovers, no buffets. No ill contacts. No recent travel. She denies any fevers or chills. She's had no associated nausea or vomiting. There is no blood in her stool. As noted she occasionally has left lower quadrant abdominal pain. No headache, cough, sputum production, sore throat, chest pain/tightness, dyspnea, dysuria, focal neurologic symptoms. She feels generally weak. Further evaluation revealed serum sodium of 122 which is below her baseline. She is also quite weak. She's had 4-5 falls over the last 6 weeks. She lives at [place], on the independent side. She is being admitted to the hospital secondary to her hyponatremia, as well as further evaluation of her left lower quadrant pain. 07/[address] yesterday. On antibiotics. Still with abdominal pain, did have nausea after hydromorphone yesterday. Her allergy to codeine is fairly severe nausea (may be codeine intolerance due to poor metabolism). She has tried morphine before. Also requesting her gabapentin, which she uses for trigeminal neuralgia. Sodium up to 126 today, slowly correcting with saline infusion. 07/19 Seen and examined. Still feels somewhat unwell. Had BM, more solid. Tolerating full liquids, advanced to low residue. Sodium up to 128. 5/2 Continues to improve. No further BM's Tolerating low residue diet. Abdomen better today. Will start bowel care, she will need that on discharge. Sodium up to 131. Anticipate should be stable for discharge 07/21 on oral meds. - Constitutional Vitals: Vital Signs Temp Pulse Resp BP Pulse Ox 97.4 F 74 20 169/71 96 07/20/17 07:35 07/20/17 07:35 07/20/17 07:35 07/20/17 07:35 07/20/17 07:35 Period Temp Pulse Resp BP Sys/Purcell Pulse Ox Last 24 Hr 97.3 F-97.9 F 67-74 14-20 108-169/59-75 93-97 Intake and Output 07/19/17 07/20/17 07/20/17 21:59 05:59 13:59 Intake Total 1939 250 / 250 Output Total 625 / 625 700 / 700 300 / 300 Balance 1315 / 1315 -450 / -450 -300 / -300 Weight 131 lb Intake & Output: Intake & Output 07/19/17 07/20/17 07/20/17 21:59 05:59 13:59 Intake Total 1939 250 / 250 Output Total 625 / 625 700 / 700 300 / 300 Balance 1315 / 1315 -450 / -450 -300 / -300 Weight 131 lb Intake: IV 1300 / 1300 100 / 100 Sodium Chloride 0.9% 1,000 ml @ 1000 / 1000 75 mls/hr IV .[id number] [facility] Rx#: [id number] Oral 640 / 640 150 / 150 Output: Void Amount 625 / 625 700 / 700 300 / 300 Other: Meal Dinner Percent of Meal Consumed 10 Feeding Ability Independent Stool Size Small Stool Color Brown Stool Consistency Soft Formed # Bowel Movements 1 Exam: General: Laying in bed, no acute distress Chest: Clear, no rales Cardiac: Regular, no edema Abdomen: Soft, no left lower quadrant tenderness, mild hypogastric tenderness, no guarding or rebound, active bowel sounds Neuro: Alert, oriented 3, generally weak, but nonfocal. Medical - PN: Obj Da - Labs CBC & Chem 7: 07/20/17 04:10 07/20/17 04:10 Labs: Abnormal Lab Results 07/20/17 07/20/17 07/19/17 04:10 04:10 04:10 WBC RBC 3.56 L Hgb 10.5 L Hct 30.9 L RDW 14.6 H MPV Gran % Lymph % (Auto) 8.0 L Gran # Lymph # (Auto) 0.4 L Seg Neutrophils % Lymphocytes % Sodium 131 L 128 L Chloride Carbon Dioxide 20 L Creatinine 0.5 L 0.5 L Glucose 108 H 118 H Calcium 7.6 L 7.8 L Globulin Albumin/Globulin Ratio Urine Protein 07/19/17 07/18/17 07/18/17 04:10 12:29 03:44 WBC RBC 3.50 L Hgb 10.5 L Hct 30.5 L RDW 14.6 H MPV 7.2 L Gran % 86.2 H Lymph % (Auto) 6.0 L Gran # Lymph # (Auto) 0.4 L Seg Neutrophils % Lymphocytes % Sodium 126 L 126 L Chloride 95 L 94 L Carbon Dioxide 20 L 21 L Creatinine 0.5 L Glucose 149 H Calcium 8.2 L 8.1 L Globulin Albumin/Globulin Ratio Urine Protein 07/18/17 07/17/17 07/17/17 03:44 19:20 11:44 WBC 14.2 H RBC 3.76 L Hgb 11.1 L Hct 32.7 L RDW MPV 7.1 L Gran % Lymph % (Auto) Gran # Lymph # (Auto) Seg Neutrophils % 96 H Lymphocytes % 1 L Sodium 125 L Chloride Carbon Dioxide Creatinine Glucose Calcium Globulin Albumin/Globulin Ratio Urine Protein 30 A 07/17/17 07/17/17 10:28 10:28 WBC 12.6 H RBC Hgb 11.7 L Hct 34.7 L RDW MPV 6.9 L Gran % 90.5 H Lymph % (Auto) 1.5 L Gran # 11.4 H Lymph # (Auto) 0.2 L Seg Neutrophils % Lymphocytes % Sodium 122 L Chloride 89 L Carbon Dioxide 20 L Creatinine Glucose 136 H Calcium Globulin 4.3 H Albumin/Globulin Ratio 0.8 L Urine Protein Meds: Medications Acetaminophen (Tylenol) 650 mg PO Q6HP PRN PRN Reason: PAIN/FEVER > 101 Amlodipine Besylate (Norvasc) 2.5 mg PO DAILY [facility] Last Admin: 07/19/17 10:47 Dose: 2.5 mg Aspirin (Aspirin) 81 mg PO DAILY [facility] Last Admin: 07/19/17 10:49 Dose: 81 mg Enoxaparin Sodium (Lovenox) 40 mg SQ DAILY [facility] Last Admin: 07/19/17 10:47 Dose: 40 mg Gabapentin (Neurontin) 100 mg PO BID [facility] Last Admin: 07/19/17 21:21 Dose: 100 mg Ciprofloxacin (Cipro) 400 mg in 200 mls @ 200 mls/hr IV Q12H [facility] Last Admin: 07/19/17 22:52 Dose: 200 mls/hr Metronidazole (Flagyl) 500 mg in 100 mls @ 100 mls/hr IV Q8H [facility] Last Admin: 07/20/17 05:04 Dose: 100 mls/hr Iron Carb/Multivit/Extender/Folic Acid (Multivitamin W/Minerals) 1 tab PO DAILY [facility] Last Admin: 07/19/17 10:48 Dose: 1 tab Levothyroxine Sodium (Synthroid) 100 mcg PO QAMAC [facility] Last Admin: 07/20/17 07:40 Dose: 100 mcg Losartan Potassium (Cozaar) 100 mg PO DAILY [facility] Last Admin: 07/19/17 10:49 Dose: 100 mg Morphine Sulfate (Morphine) 10 mg PO Q4HP PRN PRN Reason: PAIN LEVEL 3-6 Last Admin: 07/19/17 22:24 Dose: 10 mg Morphine Sulfate (Morphine) 2 mg IV Q4HP PRN PRN Reason: PAIN LEVEL > 6 Last Admin: 07/18/17 21:23 Dose: 2 mg Ondansetron HCl (Zofran) 4 mg IV Q4HP PRN PRN Reason: Nausea And Vomiting Pantoprazole Sodium (Protonix) 40 mg PO QAMAC [facility] Last Admin: 07/20/17 07:40 Dose: 40 mg Sodium Chloride (Saline Flush) 10 ml IV Q8 [facility] Last Admin: 07/20/17 05:04 Dose: Not Given Medical - PN: A/P (1) Hyponatremia Status: Acute Current Visit: Yes (2) Diverticulitis large intestine w/o perforation or abscess w/o bleeding Status: Acute Current Visit: Yes (3) Hypothyroidism (acquired) Status: Chronic Current Visit: No - Narrative A/P Narrative: 87-year-old female presents after 2 falls, weakness and diarrhea. Found to have acute on chronic hyponatremia as well as diverticulitis on examination and imaging. Diverticulitis. Uncomplicated, without perforation or abscess. WBC normalized , exam improving, no LLQ and mild hypogastric tenderness. Diverticulitis likely explains her constipation followed by her diarrhea at presentation. She has extensive sigmoid diverticulosis. Plan: Continue ciprofloxacin and metronidazole, continue low residue diet; continue morphine for pain control. Hyponatremia. Baseline serum sodium is 129 to 130 per the patient. She does have a chronic history of hyponatremia. TSH normal. 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 However, responding to NS (not usually seen in SIADH). Continues to improve. Plan: Saline lock and follow Na. Generalized weakness with recent falls. May be related to age-related debility , certainly in last few days likely related to diverticulitis and possibly hyponatremia. Plan: Physical therapy evaluation and treatment. Graves' disease with history of thyroid ablation and acquired hypothyroidism. Euthyroid on levothyroxine replacement. Plan: Continue replacement. Trigeminal neuralgia. On gabapentin at home. Plan: Continue gabapentin. Disposition: Likely to SNF 5/3 on oral antibiotics if stable. Medical - PN: Qual - Stroke Symptom Onset Unknown: No - VTE Deep Vein Thrombosis/Pulmonary Embolism Present on Admission: No
[2017-07-20] MEDS: GABAPENTIN 100 MG CAPSULE PO SCH ×2 (10:41→21:24)
[2017-07-20] MEDS: LOSARTAN 50 MG TABLET PO SCH (10:41)
[2017-07-20] MEDS: ASPIRIN 81 MG TAB.CHEW PO SCH (10:41)
[2017-07-20] MEDS: ENOXAPARIN 40 MG/0.4 ML SYRINGE SQ SCH (10:42)
[2017-07-20] MEDS: amLODIPine 5 MG TABLET PO SCH (10:42)
[2017-07-20] MEDS: MULTIVIT,THER IRON,CA,FA & MIN 1 TABLET PO SCH (10:52)
[2017-07-20] MEDS: CIPROFLOXACIN 400 MG/200 ML BAG IV SCH ×3 (11:29→21:40)
[2017-07-20] MEDS ORDERED: SENNOSIDES 1 TABLET PO SCH (21:00)
[2017-07-21] MEDS: metroNIDAZOLE 500 MG/100 ML BAG IV SCH (05:23)
[2017-07-21] MEDS: 0.9 % SODIUM CHLORIDE 10 ML SYRINGE IV SCH (05:25)
[2017-07-21 06:16] LABS: Basophils # (Auto) 0 K/mcL (0.0-0.3); Basophils % (Auto) 0.5 % (0.0-2.0); Eosinophils # (Auto) 0 K/mcL (0.0-0.7); Eosinophils % (Auto) 0 % (0.0-7.0); Granulocytes % (Auto) 71.2 % (38.0-78.0); Lymphocytes # (Auto) 0.5 K/mcL (1.5-4.8); Lymphocytes % (Auto) 12.2 % (15.5-49.0); Mean Cell Volume 86.3 fL (80.0-100.0); Mean Corpuscular Hemoglobin 29.4 pg (26.0-34.0); Monocytes # (Auto) 0.7 K/mcL (0.1-0.9); Monocytes % (Auto) 16.1 % (1.0-12.0); Platelet Count 324 K/mcL (140-440); RBC 3.69 M/mcL (4.00-5.20); Red Cell Distribution Width 14.4 % (11.5-14.5)
[2017-07-21 06:28] LABS: Blood Urea Nitrogen 6 mg/dl (8-23)
[2017-07-21] MEDS: PANTOPRAZOLE 40 MG TABLET PO SCH (07:46)
[2017-07-21] MEDS: LEVOTHYROXINE 100 MCG TABLET PO SCH (07:47)
[2017-07-21] MEDS ORDERED: POTASSIUM CHLORIDE 20 MEQ PACKET PO ONE (07:54)
[2017-07-21] MEDS: CIPROFLOXACIN 400 MG/200 ML BAG IV SCH (09:39)
[2017-07-21] MEDS: ENOXAPARIN 40 MG/0.4 ML SYRINGE SQ SCH (09:40)
[2017-07-21] MEDS: LOSARTAN 50 MG TABLET PO SCH (09:41)
[2017-07-21] MEDS: amLODIPine 5 MG TABLET PO SCH (09:42)
[2017-07-21] MEDS: MULTIVIT,THER IRON,CA,FA & MIN 1 TABLET PO SCH (09:42)
[2017-07-21] MEDS: ASPIRIN 81 MG TAB.CHEW PO SCH (09:43)
[2017-07-21] MEDS: GABAPENTIN 100 MG CAPSULE PO SCH (09:43)
--- NOTE | 2017-07-21 10:05 | Discharge Summary ---
Medical - DS: Prov Patient information: Note initiated : 07/21/17 at 9:59 am Service Date, if different from initiated Date: [] Patient: Keren Syed 87 y/o F admitted on 07/17/17 for Fall, Weakness, Diverticulitis/Hyponatremia. Chief Complaint: [] Date of admission: 07/17/17 15:01 Discharge date: 07/21/17 Primary care physician: Molina Eden Admitting clinician: Indigo Turcios Discharging clinician: Maye Perry Medical - DS: Meds - Discharge Medications Prescriptions: Ciprofloxacin HCl [Cipro] 500 mg PO BID #10 tab HYDROmorphone HCL [Dilaudid] 1 - 2 mg PO Q6HP PRN #30 tab PRN Reason: Pain metroNIDAZOLE [Metronidazole] 500 mg PO TID #15 tab Active and Home Medications: Home Medications calcium carbonate 600 mg calcium (1,500 mg) tablet 600 mg PO QDAY tab 08/29/14 [History Confirmed 07/17/17 Last Taken Unknown] cholecalciferol (vitamin D3) 1,000 unit capsule 1,000 unit PO QDAY cap [History Confirmed 07/17/17 Last Taken Unknown] ibuprofen 100 mg tablet 200 mg PO Q6H tab 08/29/14 [History Confirmed 07/17/17 Last Taken Unknown] multivitamin tablet 1 tab PO QDAY tab 08/29/14 [History Confirmed 07/17/17 Last Taken Unknown] omeprazole 20 mg capsule,delayed release 20 mg PO QDAY cap 08/29/14 [History Confirmed 07/17/17 Last Taken Unknown] psyllium seed (sugar) oral powder 1 tbsp PO QDAY each 08/29/14 [History Confirmed 07/17/17 Last Taken Unknown] aspirin 81 mg tablet,delayed release 81 mg PO QDAY tab 10/21/14 [History Confirmed 07/17/17 Last Taken Unknown] gabapentin 100 mg capsule 100 mg PO BID cap 11/03/15 [History Confirmed Last Taken Unknown] ferrous sulfate 325 mg (65 mg iron) tablet 325 mg PO QDAY 11/02/16 [History Confirmed 07/17/17 Last Taken Unknown] amlodipine 2.5 mg tablet 2.5 mg PO QDAY #90 tab 05/26/17 [Rx Confirmed 07/17/17 Last Taken Unknown] levothyroxine 100 mcg tablet 100 mcg PO QDAY #90 tab 05/26/17 [Rx Confirmed Last Taken Unknown] losartan 100 mg tablet 100 mg PO QDAY #90 tab 05/26/17 [Rx Confirmed 07/17/17 Last Taken Unknown] Medical - DS: Hosp Hospital course: The patient 87-year-old female with a history of Graves' disease, status post ablation on replacement, mild hyponatremia, diverticulosis, bladder cancer who presents to the ED after falls at home. Patient also later developed diarrhea. She had a fall in the bathroom was unable to get up. She had stool on herself. She was helped up and cleaned. Subsequently she was too weak to get up out of her chair, couldn't get to the bathroom again. Because of this she was transported to the emergency department. In the ED, she is ruled out for C. difficile with a negative stool specimen. While she was in the ED, she did develop left lower quadrant pain. She has a history of diverticulosis and occasionally gets left lower quadrant pain. Up until this morning, she had been constipated. She generally takes Metamucil every evening, not used any stronger laxatives prior to her diarrhea starting. She gets all of her meals at [place], where she lives. Has not recently eaten out, no leftovers, no buffets. No ill contacts. No recent travel. She denies any fevers or chills. She's had no associated nausea or vomiting. There is no blood in her stool. As noted she occasionally has left lower quadrant abdominal pain. No headache, cough, sputum production, sore throat, chest pain/tightness, dyspnea, dysuria, focal neurologic symptoms. She feels generally weak. Further evaluation revealed serum sodium of 122 which is below her baseline. She is also quite weak. She's had 4-5 falls over the last 6 weeks. She lives at [place], on the independent side. She was being admitted to the hospital secondary to her hyponatremia, as well as further evaluation of her left lower quadrant pain. Hospital Course 07/[address] yesterday. On antibiotics. Still with abdominal pain, did have nausea after hydromorphone yesterday. Her allergy to codeine is fairly severe nausea (may be codeine intolerance due to poor metabolism). She has tried morphine before. Also requesting her gabapentin, which she uses for trigeminal neuralgia. Sodium up to 126 today, slowly correcting with saline infusion. 07/19 Seen and examined. Still feels somewhat unwell. Had BM, more solid. Tolerating full liquids, advanced to low residue. Sodium up to 128. 5/ Continues to improve. No further BM's Tolerating low residue diet. Abdomen better today. Will start bowel care, she will need that on discharge. Sodium up to 131. Anticipate should be stable for discharge 07/21 on oral meds. 07/21 Patient seen and examined, no acute overnight events, did have a good bowel movement this morning. Potassium was low at 3.0 replaced. Patient has no concerns or complaints. Agreeable for discharge today. She will be discharged to a rehab facility to continue her physical and occupational therapy to improve strength gait and balance. Discharge Diagnosis A/P Narrative: 87-year-old female presents after 2 falls, weakness and diarrhea. Found to have acute on chronic hyponatremia as well as diverticulitis on examination and imaging. Acute Diverticulitis. Uncomplicated, without perforation or abscess. WBC normalized, exam improving, no LLQ and mild hypogastric tenderness. Plan: Continue ciprofloxacin and metronidazole for another 5 days at the rehab center., continue low residue diet; oral Dilaudid for pain control at rehab center. Avoid NSAID drugs. Ibuprofen has been held at discharge Pt will benefit from GI follow up at discharge for a sigmoidoscopy / colonoscopy. This can be arranged by the PCP. Hyponatremia. Baseline serum sodium is 129 to 130 per the patient. Back at baseline at discharge. Generalized weakness with recent falls. May be related to age-related debility , certainly in last few days likely related to diverticulitis and possibly hyponatremia. Plan: Patient will need continued therapy at the rehab center. Graves' disease with history of thyroid ablation and acquired hypothyroidism. Euthyroid on levothyroxine replacement. Plan: Continue replacement. Trigeminal neuralgia. On gabapentin at home. Plan: Continue gabapentin. At the time of discharge patient is hemodynamically stable, tolerating p.o. diet well, and is clinically improving. She will be discharged to the rehab center and she will follow-up with her regular physician as an outpatient. Discharge diagnosis: Acute diveritculitis, Acute on chr Hyponatremia. - Time Spent with Patient Total time spent providing and/or coordinating discharge services: Greater than 30 minutes Medical - DS: Exam - Constitutional Vitals: Vital Signs Temp Pulse Resp BP Pulse Ox 07/21/17 07:21 95 07/21/17 07:00 96.2 F L 64 18 150/72 07/21/17 03:20 97.9 F 73 20 168/72 95 07/21/17 00:00 98.2 F 73 20 156/66 95 07/20/17 20:00 98.4 F 71 22 137/60 93 07/20/17 16:00 97.4 F 71 20 151/68 96 07/20/17 12:00 97.5 F 75 20 159/67 96 Intake and Output 07/20/17 07/21/17 07/21/17 21:59 05:59 13:59 Intake Total 800 / 800 450 / 450 260 / 260 Output Total 1425 / 1425 1400 / 1400 550 / 550 Balance -625 / -625 -950 / -950 -290 / -290 Intake: IV 100 / 100 300 / 300 100 / 100 Oral 700 / 700 150 / 150 160 / 160 Output: Void Amount 1025 / 1025 1400 / 1400 550 / 550 # of times incontinent of urine 400 / 400 Other: Meal Breakfast Breakfast Percent of Meal Consumed 75% 25% Feeding Ability Independent Stool Size Large Stool Color Brown Stool Consistency Soft Formed # Voids 1 # Bowel Movements 1 Weight 134 lb 8 oz Additional comments: Constitutional; Afebrile, cooperative, alert, not in distress. Eyes- No icterus, , No periorbital swelling Ears- Ext ear normal, hearing normal to conversation. Neck- Midline trachea, supple Respiratory system: Air Entry equal on both sides, No crackles or wheezing, no rhonchi. CVS- Rate rhythm regular, S1,S2 heard, no gallop, no rub. Abdomen- Soft , had some left lower quadrant tenderness, improved from admission as per pt. no organomegaly, no tenderness, no guarding or rigidity, [employer]OP[employer]- AOOx3, moving all extremities, no gross focal deficit noted. Medical - DS: Data Labs on day of discharge: Labs from last 24 hours 07/21/17 07/21/17 07/21/17 04:15 04:15 04:15 WBC 4.1 L RBC 3.69 L Hgb 10.8 L Hct 31.9 L MCV 86.3 MCH 29.4 MCHC 34.0 RDW 14.4 Plt Count 324 MPV 7.0 L Gran % 71.2 Lymph % (Auto) 12.2 L Sunflower % (Auto) 16.1 H Eos % (Auto) 0 Baso % (Auto) 0.5 Gran # 2.9 Lymph # (Auto) 0.5 L Sunflower # (Auto) 0.7 Eos # (Auto) 0 Baso # (Auto) 0 Sodium 132 L Potassium 3.0 L Chloride 96 Carbon Dioxide 26 Anion Gap 10.0 BUN 6 L Creatinine 0.5 L GFR Calculation 86 Glucose 105 Calcium 7.9 L Magnesium 1.7 Medical - DS: A/P - Patient/Caregiver Discharge Instructions Activity: as per physical therapy, increase activity as tolerated Diet: Low Fiber Additional Instructions: Follow up with PCP in 1 week GO to the ER if worsening abdominal pain, fever, or any other acute concernign symptom Continue antibiotics for another 5 days. Ciprofloxacin and metronidazone. Low residue / Low fiber diet, till ok by PCP Will need GI follow up for possible colonoscopy 6 weeks out, can be arranged by PCP - Follow up Plan Follow up with: Molina Eden PA-C [Primary Care Provider] - (Please call/schedule hospital follow up.) Disposition: Xfer SNF Prognosis: Fair Rehab Potential: Fair I certify that the patient requires SNF services: Yes Overall status at discharge: patient is progressing back to baseline Medical - DS: Qual - VTE Deep Vein Thrombosis/Pulmonary Embolism Present on Admission: No
== END 2017-07-21 10:50 | DRG 392 ==
LOC: ED 09:51 → ICU 14:55 → MEDSUR 07-18 12:03
PROVIDERS: ADMIT Internal Medicine; ATTEND Internal Medicine